=== PATIENT | female | born 1980 | race Caucasian/White ===

== ENCOUNTER 2016-12-26 16:37 | Emergency (ER) | payer OTHER ==
[~2016-12-26] VITALS: Ht 157.5 cm; Wt 56.0 kg
[~2016-12-26 16:37] MED LIST: ENOX40P SQ; PERI8.6T PO; PRENCAP6 PO
[2016-12-26 16:57] VITALS: BP 115/80; PULSE 91; RESP 16; TEMP 98.4; O2SAT 100
[2016-12-26] MEDS ORDERED: IBUP800T23 PO (17:59)
[2016-12-26] MEDS ORDERED: CLIN1CAP5 PO (17:59)
[2016-12-26] MEDS ORDERED: CLINDAMYCIN 150 MG CAP PO ONE (18:00)
--- NOTE | 2016-12-26 18:00 | PD ---
HPI Chief Complaint: Oral / Dental Pain or Problem Time Seen by Provider: 17:30 Travel History International Travel<30 days: No Contact w/Intl Traveler<30days: No Traveled to known affect area: No History of Present Illness HPI This is a 36-year-old female presents emergency Department with right jaw swelling. Patient states been going on for the past 48 hours. Gradually worsening. No fevers and no real pain just swelling. Patient states that she did have a dog bite in that right jaw as a child. Some scar tissue is noted. She also states she has a bad tooth and thinks this might be the culprit. Denies any dysphasia neck pain chest pain. States symptoms been gradually worsening. Moderate in severity. PFSH Past Medical History Cardiovascular Problems: Yes Diminished Hearing: No Deep Vein Thrombosis: Yes (RIGHT LEG) Endocrine: No Gastrointestinal Disorders: No Genitourinary: No Immune Disorder: No Musculoskeletal: No Neurologic: No Reproductive: No Respiratory: No ?: Not LMP: 4 WEEKS AGO : 5 Para: 4 Social History Alcohol Use: No Tobacco Use: No Substance Use: No Allergies-Medications (Allergen,Severity, Reaction): Coded Allergies: penicillin G (Unverified Allergy, Intermediate, HIVES, 12/26/16) Reported Meds & Prescriptions Reported Meds & Active Scripts Active Ibuprofen 800 Mg Tab 800 Mg PO Q6HR PRN Clindamycin (Clindamycin HCl) 150 Mg Cap 300 Mg PO Q6H 10 Days Review of Systems Except as stated in HPI: all other systems reviewed are Neg Physical Exam Narrative GENERAL: Well-nourished, well-developed patient. In no distress. SKIN: Focused skin assessment warm/dry. Small area of swelling over the right mandible approximately the first molar. Nontender to palpation. There is a well-healed skin wound and scar overlying this area of swelling. Is more anterior and inferior than the parotid gland likely represents a developing abscess. HEAD: Normocephalic. EYES: No scleral icterus. No injection or drainage. ENT: TMs clear bilaterally, no mastoid tenderness, no sublingual tenderness, there is minimal swelling over the mucosal surface of the gumline associated with the first molar which is eroded to the gumline. No definitive drainable abscesses noted. NECK: Supple, trachea midline. No JVD or lymphadenopathy. CARDIOVASCULAR: Regular rate and rhythm without murmurs, gallops, or rubs. RESPIRATORY: Breath sounds equal bilaterally. No accessory muscle use. GASTROINTESTINAL: Abdomen soft, non-tender, nondistended. MUSCULOSKELETAL: No cyanosis, or edema. BACK: Nontender without obvious deformity. No CVA tenderness. Data Data Last Documented VS Vital Signs Date Time Temp Pulse Resp B/P (MAP) Pulse Ox O2 Delivery O2 Flow Rate FiO2 12/26/16 16:57 98.4 91 16 115/80 (92) 100 Orders Orders Clindamycin (Cleocin) (12/26/16 18:00) MDM Medical Decision Making Medical Screen Exam Complete: Yes Emergency Medical Condition: Yes Differential Diagnosis dental abscess, dental caries, parotiditis. Narrative Course patient 36-year-old female signs symptoms consistent with early dental abscess, will be placed on antibiotics, pain medicine as needed. Discussed need follow- up with her dentist which she states she is already established with. Discussed return to ED criteria symptomatic management home. She is stable for discharge. Diagnosis Primary Impression: Dental abscess Med/Other Pt SpecificInfo: Prescription(s) given Scripts Ibuprofen (Ibuprofen) 800 Mg Tab 800 MG PO Q6HR Y for PAIN, #20 TAB 0 Refills Prov: Andrey Diaz MD 12/26/16 Clindamycin (Clindamycin) 150 Mg Cap 300 MG PO Q6H for Infection for 10 Days, CAP 0 Refills Prov: Andrey Diaz MD 12/26/16 Disposition: 01 DISCHARGE HOME Condition: Stable Andrey Diaz MD Dec 26, 2016 18:00
== END 2016-12-26 18:24 | disposition home or self-care (01) ==
LOC: PHED 16:37
DX: K04.7 Periapical abscess without sinus (principal); Z88.0 Allergy status to penicillin
CPT/HCPCS: 99283